=== PATIENT | female | born 1970 | race Hispanic/Latino ===

== ENCOUNTER 2022-12-12 07:26 | Inpatient (IN) | payer OTHER ==
[~2022-12-12] VITALS: Ht 160 cm; Wt 85.5 kg
[~2022-12-12 07:26] MED LIST: ASPI-1197 PO; ATOR20TA65 PO; FURO20TA6 PO; MEDR10TA PO; METO25 PO; PIOG45TA64 PO; POTA-364 PO; SERT-439 PO; SITA1TAB6 PO
[2022-12-12 09:10] VITALS: BP 104/59; PULSE 90; RESP 18
[2022-12-12] MEDS ORDERED: ONDANSETRON 4MG INJ IVP PRN (10:30)
[2022-12-12] MEDS ORDERED: ACETAMINOPHEN 325 MG TAB PO PRN (10:30)
[2022-12-12 11:04] VITALS: BP 112/67; PULSE 80; RESP 18
[2022-12-12 11:17] LABS: BASOPHILS # (AUTO) 0.04 K/uL (0.00-0.20); BASOPHILS % (AUTO) 0.6 % (0.0-5.0); EOSINOPHILS # (AUTO) 0.48 K/uL (0.00-0.70); EOSINOPHILS % (AUTO) 7.5 % (0.0-8.0); HEMATOCRIT 26.3 % (36-48); IMMATURE GRANULOCYTE ABSOLUTE 0.04 K/uL (0-1); LYMPHOCYTES # (AUTO) 0.8 K/uL (1.0-4.8); LYMPHOCYTES % (AUTO) 12.3 % (21.0-51.0); MEAN CORPUSCULAR HEMOGLOBIN 28.4 pg (27.0-33.0); MEAN CORPUSCULAR HGB CONC 34.2 g/dL (32.0-36.0); MONOCYTES # (AUTO) 0.4 K/uL (0.1-1.0); MONOCYTES % (AUTO) 6.9 % (3.0-13.0); NEUTROPHILS # (AUTO) 4.6 K/uL (1.8-7.7); NEUTROPHILS % (AUTO) 72.1 % (40.0-77.0); PLATELET COUNT (AUTO) 188 K/uL (130-400); RED BLOOD CELL COUNT(AUTO) 3.17 MIL/uL (4.00-5.50); RED CELL DISTRIBUTION WIDTH 14.6 % (11.0-15.5); WHITE BLOOD COUNT (AUTO) 6.4 K/uL (4.8-10.8)
[2022-12-12] MEDS: INSULIN HUMULIN R 100 UNIT/ML 3ML SQ SCH ×3 (11:30→21:21)
[2022-12-12] MEDS ORDERED: MAGNESIUM 2GM PREMIX 50ML 50 ML IV PRN (11:30)
[2022-12-12] MEDS ORDERED: GLUCAGON 1MG KIT 1 MG ML IM PRN (11:30)
[2022-12-12] MEDS ORDERED: DEXTROSE 50%-WATER 50 ML DISP.SYRIN IV PRN (11:30)
[2022-12-12] MEDS ORDERED: POTASSIUM CHLORIDE 20MEQ/100ML 100 ML IV PRN (11:30)
[2022-12-12] MEDS ORDERED: KCL 20 MEQ ERTAB PO PRN (11:30)
[2022-12-12 11:31] LABS: ALBUMIN 1.8 g/dL (3.5-5.0); BILIRUBIN,TOTAL 0.7 mg/dL (0.2-1.0); CREATININE 0.6 mg/dL (0.5-1.5); POTASSIUM 3.4 mmol/L (3.5-5.1); TOTAL PROTEIN, SERUM 4.3 g/dL (6.0-8.3)
[2022-12-12] MEDS: 0.9%NACL 1000ML 1,000 ML IV SCH ×2 (12:14→20:30)
[2022-12-12 16:00] VITALS: BP 118/63; PULSE 83; RESP 18
[2022-12-12] MEDS: FUROSEMIDE 20 MG TABLET PO SCH (17:00)
[2022-12-12] MEDS ORDERED: MEDROXYPROGESTERONE ACET 5 MG TAB PO SCH (18:00)
[2022-12-12 20:10] VITALS: O2SAT 100
[2022-12-12 20:23] VITALS: BP 127/64; PULSE 97; RESP 18
[2022-12-12] MEDS ORDERED: ATORVASTATIN 20 MG TABLET PO SCH (21:00)
[2022-12-12] MEDS ORDERED: SERTRALINE HCL 50 MG TABLET PO SCH (21:00)
[2022-12-12] MEDS: METOPROLOL TARTRATE 25 MG TAB PO SCH (21:06)
[2022-12-12] MEDS: POTASSIUM CHLORIDE 10% ELIXIR 20 MEQ/15 ML UDCUP PO PRN (23:47)
[2022-12-12 23:55] VITALS: BP 100/59; PULSE 85; RESP 18
[2022-12-13] MEDS: POTASSIUM CHLORIDE 10% ELIXIR 20 MEQ/15 ML UDCUP PO PRN (01:25)
[2022-12-13 04:17] VITALS: BP 103/54; PULSE 76; RESP 18
[2022-12-13] MEDS: INSULIN HUMULIN R 100 UNIT/ML 3ML SQ SCH (05:59)
[2022-12-13 06:23] VITALS: BP 114/56; PULSE 81; RESP 18
[2022-12-13] MEDS: 0.9%NACL 1000ML 1,000 ML IV SCH (06:45)
[2022-12-13] MEDS ORDERED: MEDR10TA PO (07:24)
[2022-12-13 07:38] LABS: HEMATOCRIT 23.3 % (36-48)
[2022-12-13 08:15] VITALS: O2SAT 100
[2022-12-13] MEDS: METOPROLOL TARTRATE 25 MG TAB PO SCH (08:50)
[2022-12-13] MEDS: FUROSEMIDE 20 MG TABLET PO SCH (08:50)
[2022-12-13] MEDS ORDERED: ASPIRIN 81MG CHEW TAB PO SCH (09:00)
[2022-12-13] MEDS ORDERED: MEDROXYPROGESTERONE ACET 5 MG TAB PO SCH ×2 (09:00)
== END 2022-12-13 11:37 | disposition home or self-care (01) | DRG 811 ==
LOC: 2DH 08:47
PROVIDERS: ADMIT Hospitalist; ATTEND Hospitalist
DX: D62 Acute posthemorrhagic anemia (principal); I21.4 Non-ST elevation (NSTEMI) myocardial infarction; Z95.3 Presence of xenogenic heart valve; E11.9 Type 2 diabetes mellitus without complications; E78.5 Hyperlipidemia, unspecified; N93.9 Abnormal uterine and vaginal bleeding, unspecified; D25.9 Leiomyoma of uterus, unspecified; I10 Essential (primary) hypertension; I71.21 Aneurysm of the ascending aorta, without rupture; Z90.710 Acquired absence of both cervix and uterus
CPT/HCPCS: 36415; 80053; 82948; 84484; 85014; 85018; 85025; G0378; J1815